=== PATIENT | male | born 1980 | race African-American/Black ===

== ENCOUNTER 2016-11-22 11:39 | Emergency (ER) | payer OTHER ==
[2016-11-22 11:57] VITALS: BP 137/99; PULSE 80; TEMP 97.5; BMI 39.7
--- NOTE | 2016-11-22 12:43 | PDOC ---
History of Present Illness - General Chief Complaint: Injury Stated Complaint: RT HAND INJURY Time Seen by Provider: 11/22/16 11:58 History Source: Patient Exam Limitations: No Limitations - History of Present Illness Initial Comments: 11/22/16 12:37 36 yr male with injury to left middle finger after injury at work. Pt states a piece of sheetrock fell on his right middle digit. Occurred: reports: just prior to arrival Past History - Past Medical History Allergies/Adverse Reactions: Allergies Allergy/AdvReac Type Severity Reaction Status Date / Time No Known Allergies Allergy Verified 11/22/16 11:53 Home Medications: Ambulatory Orders NK [No Known Home Medication] 11/22/16 Asthma: Yes Diabetes: Yes HTN: Yes Other medical history: sleep apnea - Psycho/Social/Smoking Cessation Hx Anxiety: No Suicidal Ideation: No Smoking Status: Yes Smoking History: Never smoked Have you smoked in the past 12 months: Yes Number of Cigarettes Smoked Daily: 1 Information on smoking cessation initiated: No 'Breaking Loose' booklet given: 05/20/14 Hx Alcohol Use: No Drug/Substance Use Hx: Yes (alma) Substance Use Type: None Review of Systems - Review of Systems Able to Perform ROS?: Yes Is the patient limited Romanian proficient: No Constitutional: No: Symptoms Reported HEENTM: No: Symptoms Reported Respiratory: No: Symptoms reported Cardiac (ROS): No: Symptoms Reported ABD/GI: No: Symptoms Reported : No: Symptoms Reported Musculoskeletal: Yes: See HPI *Physical Exam - Vital Signs Last Vital Signs Temp Pulse Resp BP Pulse Ox 97.5 F L 80 18 137/99 100 11/22/16 11:54 11/22/16 11:54 11/22/16 11:54 11/22/16 11:54 11/22/16 11:54 - Physical Exam General Appearance: Yes: Nourished, Appropriately Dressed HEENT: positive: EOMI, BAUDILIO Neck: positive: Supple Respiratory/Chest: positive: Lungs Clear, Normal Breath Sounds Cardiovascular: positive: Regular Rhythm, Regular Rate Extremity: positive: Normal Capillary Refill, Normal Inspection, Other (right middle digit with pain to the tip of finger ) Integumentary: positive: Normal Color, Dry, Warm Neurologic: positive: Fully Oriented, Alert, Normal Mood/Affect, Normal Response , Motor Strength 5/5 ED Treatment Course - RADIOLOGY Radiology Studies Ordered: Category Date Time Status FINGER(S) RIGHT [RAD] Stat Radiology 11/22/16 12:05 Ordered *DC/Admit/Observation/Transfer Diagnosis at time of Disposition: Finger contusion Qualifiers: Encounter type: initial encounter Finger: middle finger Damage to nail status: without damage Laterality: right Qualified Code(s): S60.031A - Contusion of right middle finger without damage to nail, initial encounter - Discharge Dispostion Disposition: HOME Condition at time of disposition: Good - Referrals Referrals: Rell Fu MD [Primary Care Provider] - - Patient Instructions Additional Instructions: use the splint while awake remove to sleep and bathe use for 3-5 days take motrin as needed for any pain (over the counter ibuprofen, advil motrin) follow with the orthopedist for follow up as needed - Post Discharge Activity Work/School Note: Back to Work
== END 2016-11-22 13:18 | disposition home or self-care (01) ==
LOC: JERFT 11:39
PROC: 2W3JX1Z Immobilization of Right Finger using Splint (ICD-10-PCS; principal; 2016-11-22)
DX: S60.031A Contusion of right middle finger without damage to nail, initial encounter (principal); W22.8XXA Striking against or struck by other objects, initial encounter; Y93.H3 Activity, building and construction; Y92.69 Other specified industrial and construction area as the place of occurrence of the external cause; Y99.0 Civilian activity done for income or pay; I10 Essential (primary) hypertension; E11.9 Type 2 diabetes mellitus without complications; J45.909 Unspecified asthma, uncomplicated; G47.39 Other sleep apnea
CPT/HCPCS: 73140-TC-RT; 99281-25

== ENCOUNTER 2017-09-04 19:59 | Emergency (ER) | payer OTHER ==
--- NOTE | 2017-09-04 20:20 | PDOC ---
Rapid Medical Evaluation Chief Complaint: Pain, Acute Time Seen by Provider: 09/04/17 20:18 Medical Evaluation: Allergies Allergy/AdvReac Type Severity Reaction Status Date / Time No Known Allergies Allergy Verified 11/22/16 11:53 09/04/17 20:18 37yo male patient w/ PmHx: IDDM (not taking any medications) presents to ED via EMS c/o left leg pain. 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 Patient reports he is unable to ambulate at this time.
[2017-09-04 20:21] VITALS: BP 151/92; PULSE 87; TEMP 98.3; BMI 40.2
--- NOTE | 2017-09-04 21:21 | PDOC ---
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 Patient states he was running when his left leg slipped out in front of him and he suddenly felt a "pop" to the back of his left thigh and now feels like he can not move his leg without pain. He denies any trauma to the leg. He denies any loss of sensation to his lower extremities. PAST MEDICAL HISTORY: Denies past medical history FAMILY HISTORY: Denies SOCIAL HISTORY: Denies tobacco, alcohol, illicit drug use. SURGICAL HISTORY: Denies ALLERGIES: No known drug allergies REVIEW OF SYSTEMS as per HPI PHYSICAL EXAM General Appearance: Well-appearing, appropriately dressed. No apparent distress. HEENT: EOMI, PERRLA. No conjunctival pallor. No photophobia, scleral icterus. Respiratory/Chest: Lungs CTAB. Cardiovascular: RRR. S1, S2. Gastrointestinal/Abdominal: Normal bowel sounds. Abdomen soft, non-distended. No tenderness or rebound tenderness. No organomegaly, pulsatile mass, guarding , hernia, hepatomegaly, splenomegaly. Musculoskeletal/Extremities: Limited ROM to left leg, pain elicited with flexion or extension, but no deformities. FROM of all other extremities, normal capillary refill. No tenderness to extremities, pedal edema, swelling, erythema or deformity. Integumentary: Appropriate color, dry, warm. No cyanosis, erythema, jaundice or rash Neurologic: finger buffs assembler II-XII intact. Fully oriented, alert. Appropriate mood/affect. Motor strength 5/5. No appreciable EOM palsy, facial droop or sensory deficit. Past History - Past Medical History Allergies/Adverse Reactions: Allergies Allergy/AdvReac Type Severity Reaction Status Date / Time No Known Allergies Allergy Verified 09/04/17 20:19 Home Medications: Ambulatory Orders Diclofenac Sodium 50 mg PO BID #20 tablet. 09/04/17 Asthma: Yes Diabetes: Yes HTN: Yes - Suicide/Smoking/Psychosocial Hx Smoking Status: Yes Smoking History: Never smoked Have you smoked in the past 12 months: Yes Number of Cigarettes Smoked Daily: 1 'Breaking Loose' booklet given: 05/20/14 Hx Alcohol Use: No Drug/Substance Use Hx: Yes (alma) Substance Use Type: None *Physical Exam - Vital Signs Last Vital Signs Temp Pulse Resp BP Pulse Ox 98.3 F 87 16 151/92 97 09/04/17 20:19 09/04/17 20:19 09/04/17 20:19 09/04/17 20:19 09/04/17 20:19 Medical Decision Making - Medical Decision Making 09/04/17 21:20 37 yo obese male with hx of non insulin dependent DM presents to fast track with pain to posterior left thigh 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 Clinical presentation consistent with hamstring injury. -60 mg Toradol IM -Crutches -Anatoliy bandage Will treat pain with NSAIDS Advised patient to take medication as prescribed and follow up with ortho next week. Advised patient of signs and symptoms for return to ED. Patient verbalized understanding and agrees to plan. *DC/Admit/Observation/Transfer Diagnosis at time of Disposition: Left hamstring injury Qualifiers: Encounter type: initial encounter Qualified Code(s): S76.302A - Unspecified injury of muscle, fascia and tendon of the posterior muscle group at thigh level , left thigh, initial encounter - Discharge Dispostion Disposition: HOME Condition at time of disposition: Stable Admit: No - Prescriptions Prescriptions: Diclofenac Sodium 50 mg PO BID #20 tablet.dr - Referrals Referrals: Endy Mace MD [Staff Physician] - Fito Mclain MD [Staff Physician] - - Patient Instructions Printed Discharge Instructions: DI for Hamstring Strain, How To Perform RICE ( Rest, Ice, Compress, Elevate) Additional Instructions: Please take medications as prescribed. As discussed, if your pain persists past 3-5 days, please follow up with orthopedics for physical therapy and/or MRI. If you develop any loss of sensation to your leg, any loss of bowel or bladder function, or any new or worsening symptoms, please return to the ER. - Post Discharge Activity Forms/Work/School Notes: Back to Work
[2017-09-04] MEDS ORDERED: KETOROLAC TROMETHAMINE 60 MG/2 ML VIAL IM ONE (21:31)
[2017-09-04] MEDS ORDERED: KETOROLAC TROMETHAMINE 60 MG/2 ML VIAL ONE (21:32)
== END 2017-09-04 21:38 | disposition home or self-care (01) ==
LOC: JERFT 19:59
PROC: 3E0233Z Introduction of Anti-inflammatory into Muscle, Percutaneous Approach (ICD-10-PCS; principal; 2017-09-04)
DX: S76.302A Unspecified injury of muscle, fascia and tendon of the posterior muscle group at thigh level, left thigh, initial encounter (principal); W01.0XXA Fall on same level from slipping, tripping and stumbling without subsequent striking against object, initial encounter; Y93.F9 Activity, other caregiving; Y92.89 Other specified places as the place of occurrence of the external cause; Y99.0 Civilian activity done for income or pay; J45.909 Unspecified asthma, uncomplicated; I10 Essential (primary) hypertension; E11.9 Type 2 diabetes mellitus without complications; Z79.84 Long term (current) use of oral hypoglycemic drugs
CPT/HCPCS: 99281-25

== ENCOUNTER 2019-06-01 14:47 | Emergency (ER) | payer OTHER ==
[2019-06-01 14:56] VITALS: BP 140/79; PULSE 89; TEMP 98.3; BMI 42.7
[2019-06-01] MEDS ORDERED: KETOROLAC TROMETHAMINE 60 MG/2 ML VIAL IM ONE (15:08)
--- NOTE | 2019-06-01 15:13 | PDOC ---
History of Present Illness - General Chief Complaint: Back Pain Stated Complaint: PAIN Time Seen by Provider: 06/01/19 14:57 - History of Present Illness Initial Comments: 06/01/19 15:08 CHIEF COMPLAINT: left sided pain HISTORY OF PRESENT ILLNESS: 39 yo M with hx of non insulin dependent DM presents to fast track with left sided pain. Patient states he went to sleep with his arm extended over his head a couple nights ago, and woke up with pain to his left side. He describes the pain as "inside, not coming from the outside ," but does endorse worsening pain with movement. He believed the pain would self resolve but instead has gotten worse. He c/o of pain with inspiration and movement. He admits to smoking marijuana (not vaping), denies use of illicit drugs or cigarettes. Denies any recent travel, use of hormones, recent surgies. No recent travel or sick contacts. PAST MEDICAL HISTORY: NIDDM FAMILY HISTORY: Denies SOCIAL HISTORY: Marijuana use. Denies tobacco, alcohol, illicit drug use. SURGICAL HISTORY: Denies ALLERGIES: No known drug allergies REVIEW OF SYSTEMS General/Constitutional: Denies fever or chills. Denies weakness, weight change. HEENT: Denies change in vision. Denies ear pain or discharge. Denies sore throat. Cardiovascular: Chest pain with deep inspiration. Denies shortness of breath. Respiratory: Denies cough, wheezing, or hemoptysis. Gastrointestinal: Denies nausea, vomiting, diarrhea or constipation. Denies rectal bleeding. Genitourinary: Denies dysuria, frequency, or change in urination. Musculoskeletal: Left lateral chest wall pain. Denies joint or muscle swelling or pain. Denies neck or back pain. Skin and breasts: Denies rash or easy bruising. Neurologic: Denies headache, vertigo, loss of consciousness, or loss of sensation. Psychiatric: Denies depression or anxiety. PHYSICAL EXAM General Appearance: Well-appearing, appropriately dressed. No apparent distress. HEENT: EOMI, PERRLA, normal ENT inspection, normal voice, TMs normal, pharynx normal. No conjunctival pallor. No photophobia, scleral icterus. Neck: Supple. Trachea midline. No tenderness, rigidity, carotid bruit, stridor , lymphadenopathy, or thyromegaly. Respiratory/Chest: Lungs CTAB. No shortness of breath, chest tenderness, respiratory distress, accessory muscle use. No crackles, rales, rhonchi, stridor , wheezing, dullness Cardiovascular: RRR. S1, S2. No JVD, murmur, bradycardia, tachycardia. Vascular Pulses: Dorsalis-Pedis (R): 2+, Dorsalis-Pedis (L): 2+ Gastrointestinal/Abdominal: Normal bowel sounds. Abdomen soft, non-distended. No tenderness or rebound tenderness. No organomegaly, pulsatile mass, guarding , hernia, hepatomegaly, splenomegaly. Lymphatic: No adenopathy, tenderness. Musculoskeletal/Extremities: Reproducible pain to L lateral chest wall. Normal inspection. FROM of all extremities, normal capillary refill. Pelvis Stable. No CVA tenderness. No tenderness to extremities, pedal edema, swelling, erythema or deformity. Integumentary: Appropriate color, dry, warm. No cyanosis, erythema, jaundice or rash Neurologic: caster investment casting II-XII intact. Fully oriented, alert. Appropriate mood/affect. Motor strength 5/5. No appreciable EOM palsy, facial droop or sensory deficit. Past History - Past Medical History Allergies/Adverse Reactions: Allergies Allergy/AdvReac Type Severity Reaction Status Date / Time No Known Allergies Allergy Verified 06/01/19 14:56 Home Medications: Ambulatory Orders Diclofenac Sodium 50 mg PO BID #20 tablet. 09/04/17 Diclofenac Sodium 75 mg PO BID #20 tablet. 06/01/19 Asthma: Yes COPD: No Diabetes: Yes HTN: Yes - Psycho Social/Smoking Cessation Hx Smoking Status: Yes Smoking History: Current some day smoker Have you smoked in the past 12 months: Yes Number of Cigarettes Smoked Daily: 0 Information on smoking cessation initiated: No 'Breaking Loose' booklet given: 05/20/14 Hx Alcohol Use: No Drug/Substance Use Hx: Yes Substance Use Type: None *Physical Exam - Vital Signs Last Vital Signs Temp Pulse Resp BP Pulse Ox 98.3 F 89 16 140/79 97 06/01/19 14:53 06/01/19 14:53 06/01/19 14:53 06/01/19 14:53 06/01/19 14:53 Medical Decision Making - Medical Decision Making 06/01/19 15:13 39 yo M with hx of non insulin dependent DM presents to fast track with left sided pain. -CXR -Toradol IM Discharge - Discharge Information Problems reviewed: Yes Clinical Impression/Diagnosis: Chest wall pain Condition: Stable Disposition: HOME - Admission No - Additional Discharge Information Prescriptions: Diclofenac Sodium 75 mg PO BID #20 tablet.dr - Follow up/Referral Referrals: Conor Elena MD [Staff Physician] - - Patient Discharge Instructions Patient Printed Discharge Instructions: DI for Muscle Strain Additional Instructions: Please take medications as prescribed. Follow up with your primary care doctor in 1 week for continued monitoring of your symptoms. If you develop worsening chest pain, shortness of breath, radiating pain to your neck or shoulder, or any new or worsening symptoms, please return to the ER immediately. - Post Discharge Activity
[2019-06-01] MEDS ORDERED: KETOROLAC TROMETHAMINE 60 MG/2 ML VIAL ONE (15:16)
== END 2019-06-01 16:12 | disposition home or self-care (01) ==
LOC: JERFT 14:47
PROC: 3E0233Z Introduction of Anti-inflammatory into Muscle, Percutaneous Approach (ICD-10-PCS; principal; 2019-06-01)
DX: R07.89 Other chest pain (principal); E11.9 Type 2 diabetes mellitus without complications; Z79.4 Long term (current) use of insulin; I10 Essential (primary) hypertension; J45.909 Unspecified asthma, uncomplicated
CPT/HCPCS: 71046-TC-FY; 96372; 99282-25

== ENCOUNTER 2020-05-18 12:07 | Emergency (ER) | payer OTHER ==
[2020-05-18 12:14] VITALS: TEMP 97.6; BMI 40.1
[2020-05-18 13:12] LABS: BASO % 1.1 % (0-2.0); EOS % 1.8 % (0-4.5); HEMATOCRIT 41.9 % (35.4-49); HEMOGLOBIN 14.4 GM/dL (11.7-16.9); LYMPH % 32.2 % (8-40); MCH 31.5 pg (25.7-33.7); MCHC 34.5 g/dl (32.0-35.9); MEAN CELL VOLUME 91.5 fl (80-96); MEAN PLT VOLUME 9.1 fl (7.5-11.1); MONO % 7.2 % (3.8-10.2); NEUT % 57.7 % (42.8-82.8); PLATELET COUNT 199 K/MM3 (134-434); RBC 4.58 M/mm3 (4.00-5.60); RDW 13.2 % (11.9-15.9)
--- NOTE | 2020-05-18 13:22 | PDOC ---
History of Present Illness - General Chief Complaint: Chest Pain Stated Complaint: CHEST PRESSURE Time Seen by Provider: 05/18/20 12:42 History Source: Patient, Family Exam Limitations: No Limitations - History of Present Illness Initial Comments: 05/18/20 13:22 Hermilo Lancaster is a 40M with PMH HTN, NIDDM, GERD, presenting with chest pressure. Has not seen doctor in years. 2 weeks ago visited family in [place], deny and covid-19 exposure, never tested. Soon after got a fever with significant coughing, self isolated at home with spouse who was also sick, since fully recovered. After started getting AM and PM epigastric/substernal chest pain, sharp and burning with occassional radiation up to neck and irritating throat. Also has difficulty breathing with deep inspiration. Has had GERD before but never treated. Pain worse when supine and improved with sitting up. No N/V, no fevers, no productive cough, no C/D, no lower abd pain, no urinary sx. No personal or FH of blood clots. No PMH ACS or heart/lung disease. No allergies. No PSH. Chronic marijuana user, last use last night, occasional alcohol, no tobacco use. No PSH. Past History - Medical History Allergies/Adverse Reactions: Allergies Allergy/AdvReac Type Severity Reaction Status Date / Time No Known Allergies Allergy Verified 05/18/20 12:14 Home Medications: Ambulatory Orders Famotidine [Pepcid -] 20 mg PO DAILY PRN #14 tablet 05/18/20 Mag Hydrox/Aluminum Hyd/Simeth [Maalox Advanced Suspension] 355 ml PO DAILY PRN #1 oral.susp 05/18/20 Asthma: Yes COPD: No Diabetes: Yes HTN: Yes - Psycho-Social/Smoking History Smoking Status: Yes Smoking History: Current every day smoker Have you smoked in the past 12 months: Yes Number of Cigarettes Smoked Daily: 0 Information on smoking cessation initiated: No 'Breaking Loose' booklet given: 05/20/14 - Substance Abuse Hx (Audit-C & DAST Scrn) How often the patient has a drink containing alcohol: Never Score: In Men: 4 or > Positive; In Women: 3 or > Positive: 0 Screen Result (Pos requires Nsg. Audit-10AR): Negative In the last yr the pt used illegal drug/Rx for NonMed reason: Yes Score: Yes response is considered Positive: 1 Screen Result (Positive result requires Nsg. DAST-10): Positive Review of Systems - Review of Systems Able to Perform ROS?: Yes Constitutional: No: Symptoms Reported HEENTM: No: Symptoms Reported Respiratory: Yes: Shortness of Breath, SOB at Rest. No: Cough, Productive cough Cardiac (ROS): Yes: Chest Pain. No: Irregular Heart Rate, Lightheadedness, Palpitations, Syncope ABD/GI: Yes: Nausea, Poor Appetite, Poor Fluid Intake. No: Constipated, Diarrhea, Vomiting, Abdominal cramping : No: Symptoms Reported Musculoskeletal: No: Symptoms Reported Integumentary: No: Symptoms Reported Neurological: No: Symptoms reported Endocrine: No: Symptoms Reported Hematologic/Lymphatic: No: Symptoms Reported All Other Systems: Reviewed and Negative *Physical Exam - Vital Signs Last Vital Signs Temp Pulse Resp BP Pulse Ox 97.6 F 92 H 22 H 152/103 H 98 05/18/20 12:10 05/18/20 12:10 05/18/20 12:10 05/18/20 12:10 05/18/20 12:10 - Physical Exam General Appearance: Yes: Nourished, Appropriately Dressed, Mild Distress, Obese, Other (tall, anxious-appearing) HEENT: positive: EOMI, BAUDILIO, Normal Voice, Symmetrical, Pharynx Normal. negative: Scleral Icterus (R), Scleral Icterus (L), Pharyngeal Erythema, Tonsillar Exudate, Tonsillar Erythema Neck: positive: Trachea midline, Normal Thyroid, Supple. negative: Tender, Rigid, Lymphadenopathy (R), Lymphadenopathy (L), Tender lateral, Tender midline Respiratory/Chest: positive: Lungs Clear, Normal Breath Sounds. negative: Chest Tender, Respiratory Distress, Accessory Muscle Use, Labored Respiration, Crackles, Rales, Rhonchi, Stridor, Wheezing Cardiovascular: positive: Regular Rhythm, Regular Rate, Tachycardia (93). negative: Murmur Gastrointestinal/Abdominal: positive: Normal Bowel Sounds, Soft, Protuberent. negative: Tender, Organomegaly, Pulsatile Mass, Guarding, Rebound Musculoskeletal: positive: Normal Inspection. negative: CVA Tenderness, Vertebral Tenderness Extremity: positive: Normal Capillary Refill, Normal Inspection, Normal Range of Motion, Pelvis Stable. negative: Tender, Pedal Edema, Swelling, Calf Tenderness Integumentary: positive: Normal Color, Dry, Warm Neurologic: positive: Fully Oriented, Alert, Normal Mood/Affect, Normal Response, Motor Strength 12/26 ED Treatment Course - LABORATORY CBC & Chemistry Diagram: 05/18/20 13:02 05/18/20 13:02 - ADDITIONAL ORDERS Additional order review: 05/18/20 13:02 RBC 4.58 MCV 91.5 MCHC 34.5 RDW 13.2 MPV 9.1 Neutrophils % 57.7 Lymphocytes % 32.2 Monocytes % 7.2 Eosinophils % 1.8 Basophils % 1.1 Medical Decision Making - Medical Decision Making 05/18/20 13:22 Patient presents with 2 weeks of substernal chest pain with burning sensation radiating to throat. Also has worsening SOB with deep inspiration and recent travel. Presentation concerning for GERD vs. ACS, but also having pleuritic pain, satting 100% on RA without SOB at this time, concern for PE but can be ruled out by PERC. Ordering CMP/CBC/CP/lipase/D-dimer/ECG/CXR. Pepcid/Maalox given. CXR unremarkable. ECG shows NSR with HR 98, QTc 428, no TOMAS/D or TWI. Labs notable for: - CBC WNL - CMP WNL, BGM 200 consistent with DM but unconcerning - CP negative - D-dimer 443 WNL 05/18/20 15:19 Patient feels much better after GI medicines. HR 81. Labs unremarkable for ACS, unlikely PE. Discharging home with Pepcid/Maalox. Educated about GERD and return precautions. Educated about DM and HTN and need for PMD f/u. Discharge - Discharge Information Problems reviewed: Yes Clinical Impression/Diagnosis: Chest pressure GERD (gastroesophageal reflux disease) Qualifiers: Esophagitis presence: esophagitis presence not specified Qualified Code(s): K21.9 - Gastro-esophageal reflux disease without esophagitis Condition: Stable Disposition: HOME - Admission No - Additional Discharge Information Prescriptions: Mag Hydrox/Aluminum Hyd/Simeth [Maalox Advanced Suspension] 355 ml PO DAILY PRN #1 oral.susp PRN Reason: Dyspepsia Famotidine [Pepcid -] 20 mg PO DAILY PRN #14 tablet PRN Reason: Dyspepsia - Follow up/Referral Referrals: [facility] [place] [Provider Group] DiGiorno,Kwadwo, DO [Staff Physician] - - Patient Discharge Instructions Patient Printed Discharge Instructions: DI for Gastroesophageal Reflux Disease (GERD), DI for Atypical Chest Pain Additional Instructions: Today you were evaluated for chest pain. Your labs and X-ray are all normal. You are not having a heart attack and do not have any clots in your lungs. Your symptoms are being caused by strong acid reflux. At home, do not eat too close to bed time, avoid alcohol, fatty, or spicy foods, and take Pepcid and Maalox for symptoms. Pepcid can be taken once a day, or up to twice a day if needed. If twice a day does not work, you can get over the counter Nexium and see a GI doctor. A referral to see a primary care doctor and a GI doctor has been given, please see them in the next week. If you experience worsening chest pain, difficulty breathing, dizziness, vomiting, or any other new or concerning symptoms, please return to the emergency room. - Post Discharge Activity
[2020-05-18] MEDS ORDERED: FAMOTIDINE 20 MG/50 ML IVPB 20 MG/50 ML MG IVPB ONE (13:47)
[2020-05-18] MEDS ORDERED: MAG HYDROX/AL HYDROX/SIMETH 30 ML UNIT-DOSE CUP PO ONE (13:47)
--- OUTSIDE RECORDS SUMMARY | 2020-05-18 13:50 | XMS ---
:1980 Author Organization [facility] Support Name Relationship Address Phone SE Unavailable Unavailable Unavailable [place] Unavailable [address] [facility] [place] [address] OLIVIA LANCASTER [address] [place] [address] LAMINE CHARLES SISTER Leana JOHN PH [place] [address] Olivia Lancaster Unavailable [address] [place] [address] Re-disclosure Warning The records that you are about to access may contain information from federally- assisted alcohol or drug abuse programs. If such information is present, then the following federally mandated warning applies: This information has been disclosed to you from records protected by federal confidentiality rules (42 CFR part 2). The federal rules prohibit you from making any further disclosure of this information unless further disclosure is expressly permitted by the written consent of the person to whom it pertains or as otherwise permitted by 42 CFR part 2. A general authorization for the release of medical or other information is NOT sufficient for this purpose. The Federal rules restrict any use of the information to criminally investigate or prosecute any alcohol or drug abuse patient.The records that you are about to access may contain highly sensitive health information, the redisclosure of which is protected by Article 27-F of the [facility] Public Health law. If you continue you may haveaccess to information: Regarding HIV / AIDS; Provided by facilities licensed or operated by the [facility] Office of Mental Health; or Provided by the [facility] Office for People With Developmental Disabilities. If such information is present, then the following [facility] mandated warning applies: This information has been disclosed to you from confidential records which are protected by state law. State law prohibits you from making any further disclosure of this information without the specific written consent of the person to whom it pertains, or as otherwise permitted by law. Any unauthorized further disclosure in violation of state law may result in a fine or prison sentence or both. A general authorization for the release of medical or other information is NOT sufficient authorization for further disclosure. Allergies and Adverse Reactions Type Description Substance Reaction Status Data Source(s ) No Information No Information No Information eC W2 ([facility]) No Information No Information No Information eC W2 ([facility]) No Known Allergies No Known Allergies No Known Allergies eCW2 ([facility]) Encounters Encounter Providers Location Date Indications Data Source(s ) [facility] 07/13/2018 eCW2 [facility] 12:00:00 AM [facility] EST Care) [facility] 07/02/2018 eCW2 [facility] 12[facility]00:00 AM [facility] EST Care) [facility] 06/04/2018 eCW2 [facility] 12:00:00 AM [facility] EDT Care) [facility] 06/04/2018 eCW2 ([facility] 12:00:00 AM [facility] EDT Care) [facility] 06/04/2018 eCW2 [facility] 12:00:00 AM [facility] EDT Care) Immunizations Vaccine Date Status Description Data Source(s) No Known Immunizations completed eCW2 ([facility]) No Known Immunizations completed eCW2 ([facility]) No Known Immunizations completed eCW2 ([facility]) Medications Medication Brand Start Product Dose Route Administrative Pharmacy [facility] Indications Reaction Description Data Name Date Form Instructions Instructions Source(s) Ofloxacin 3 Ofloxa 06/04/ active 1 drop into eCW2 MG/ML 2017 affected eye ([place] [facility] 0.3 % 12:00: [place] [facility] 00 [facility] 0.3 % Metformin Metfor 10/12/ active 1 tablet eCW2 hydrochlori min 2017 with a meal ( Abhishek de 1000 MG HCl 12:00: [place] Oral Tablet 1000 00 AM [facility] Metformin mg EDT Care) HCl 1000 mg Ciprofloxac Ciprof active 2 drops into eCW2 in 3 MG/ML loxaci 2017 affected eye ([facility] n HCl 12:00: [place] Solution 0.3 % 00 AM [facility] Ciprofloxac EDT Care) in HCl 0.3 % No Known complet eCW2 Medications ed (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 erectile dysfunction type K21.9 Gastroesophageal Gastroesophageal Problem 07/02/2018 eC W2 ([place] reflux disease reflux disease 12:00:00 AM [facility] without esophagitis without esophagitis EST Care) E11.9 Type 2 diabetes Type 2 diabetes Problem 06/04/2018 eCW2 ([place] mellitus mellitus 12:00:00 AM [facility] EDT Care) N52.9 Erectile dysfunction Erectile Problem 06/04/2018 eCW2 ([place] dysfunction 12:00:00 AM [facility] EDT Care) E66.01 Morbid obesity Morbid obesity Problem 06/04/2018 eCW2 ( [place] 12:00:00 AM [facility] EDT Care) V75.9 SCREENING Screen For Infec Diagnosis 10/22/2018 [place] ([place] EXAMINATION FOR Dis NOS 03:49:06 PM [place] UNSPECIFIED [facility] INFECTIOUS DISEASE [facility]) Surgeries/Procedures Procedure Description Date Indications Data Source(s) COLLECTION CAPILLARY 06/04/2018 eCW2 ([facility] BLOOD SPECIMEN 12:00:00 AM Health Care) EDT GLUC BLD GLUC MNTR DEV 06/04/2018 eCW2 ([place] CLEARED FDA SPEC HOME 12:00:00 AM Health Care) USE EDT HEMOGLOBIN 06/04/2018 eCW2 ([facility] john GLYCOSYLATED A1C 12:00:00 AM Health Care ) EDT No Known procedures No Known procedures e CW2 ([facility]) No Known procedures No Known procedures e CW2 ([facility]) Social History Code Duration Value Status Description Data Source(s ) Smoking Unknown if ever completed Unknown if ever eCW2 ([facility] smoked smoked [facility]) Smoking Unknown if ever completed Unknown if ever eCW2 ([facility] smoked smoked [facility]) Smoking Never Smoker completed Never Smoker eCW2 ([facility] on [facility]) Vital Signs ID Date Data Source UNK Name Value Range Interpretation Code Description Data Source(s) Diastolic blood 81 mm[Hg] 81 mm[Hg] eCW2 ([facility]) Systolic blood 131 mm[Hg] 131 mm[Hg] eCW2 ([facility] on [facility]) Body temperature 99.0 [degF] 99.0 [degF] eCW2 ( [facility]) Body mass index 43.95 kg/m2 43.95 kg/m2 eCW2 ([facility] [place] (BMI) [Ratio] [facility]) Body weight 314 [lb_av] 314 [lb_av] eCW2 ([facility] n [facility]) Body height 70.87 70.87 [in_us] eCW2 ([facility] on [in_us] [facility]) Patient Treatment Plan of Care Planned Activity Planned Date Details Description Data Source (s) Ofloxacin 3 MG/ML 06/04/2018 12:00:00 eCW 2 ([facility] Ophthalmic Solution AM [facility]) Metformin hydrochloride 06/04/2018 12:00:00 eCW2 ([facility] 1000 MG Oral Tablet AM [facility]) Ciprofloxacin 3 MG/ML 06/04/2018 12:00:00 eCW2 ([facility] Ophthalmic Solution AM [facility])
[2020-05-18] MEDS ORDERED: MAG HYDROX/AL HYDROX/SIMETH 30 ML UNIT-DOSE CUP ONE (13:52)
[2020-05-18 13:58] LABS: ALK PHOS 62 U/L (45-117); ANION GAP 3 MMOL/L (8-16); BILIRUBIN,TOTAL 0.3 mg/dL (0.2-1); BLOOD UREA NITROGEN 12.7 mg/dL (7-18); CALCIUM 9.5 mg/dL (8.5-10.1); CHLORIDE 106 mmol/L (98-107); CO2 30 mmol/L (21-32); GLUCOSE,RANDOM 210 mg/dL (74-106); POTASSIUM 4.1 mmol/L (3.5-5.1); SGOT/AST 23 U/L (15-37); SGPT/ALT 36 U/L (13-61); SODIUM 138 mmol/L (136-145)
--- NOTE | 2020-05-18 14:55 | PDOC ---
Documentation entered by Elba Rosa SCRIBE, acting as scribe for Gregory Chavez MD. Gregory Chavez MD: This documentation has been prepared by the connieibeMoe Lincy, SCRIBE, under my direction and personally reviewed by me in its entirety. I confirm that the documentation accurately reflects all work, treatment, procedures, and medical decision making performed by me. Attending Attestation - Resident Resident Name: Juan Norris - ED Attending Attestation I have performed the following: I have examined & evaluated the patient, The case was reviewed & discussed with the resident, I agree w/resident's findings & plan, Exceptions are as noted - HPI HPI: 05/18/20 14:44 The patient is a 40-year-old female with a past medical history significant for asthma (childhood), HTN, DM, and GERD who presents to the emergency department with chest discomfort. The patient reports midsternal, chest discomfort like he is suffocating and choking, thats aggravated with lying down. Denies pain aggravation with ambulation. The patient reports associated symptoms of nausea and mild abdominal discomfort. - Physicial Exam PE: 05/18/20 14:44 Vitals: Triage vital signs reviewed General Appearance: No acute distress, well nourished, well developed Neck: Supple; No nuchal rigidity Chest Wall: Nontender Cardiac: Regular rate and rhythm, no murmurs, no rubs, no gallops Lungs: Clear to auscultation bilateral, good air movement bilaterally Abdomen: Soft, nondistended, normal bowel sounds, nontender to palpation Extremities: Full range of motion to all extremities, no cyanosis, clubbing, or edema Skin: Warm and dry, no rashes or lesions, no rash, no petechiae Psych: Normal mood, normal affect - Medical Decision Making 05/18/20 15:10 Well-appearing no apparent distress with mild shortness of breath when laying flat. No exertional component. Mild epigastric discomfort. No associated diaphoresis nausea This is been going on for several days EKG demonstrates no ST elevations or T wave inversions His troponin is negative Heart score 1 Patient feels better after GI cocktail possible reflux as etiology We will discharge home with PCP and GI follow-up Findings, need for follow-up and strict return instructions discussed with patient. Heart Score/ECG Review - History History: Slightly suspicious - Electrocardiogram EKG: Normal - Age Age: </= 45 - Risk Factors Risk Factors Heart Score: Yes Hx Hypertension, Yes Hx Diabetes Based on the list above the patient has:: 1-2 risk factors - Troponin Troponin: </= normal limit - Score Heart Score - Total: 1 Discharge - Discharge Information Problems reviewed: Yes Clinical Impression/Diagnosis: Chest pressure GERD (gastroesophageal reflux disease) Qualifiers: Esophagitis presence: esophagitis presence not specified Qualified Code(s): K21.9 - Gastro-esophageal reflux disease without esophagitis Disposition: HOME - Additional Discharge Information Prescriptions: Mag Hydrox/Aluminum Hyd/Simeth [Maalox Advanced Suspension] 355 ml PO DAILY PRN #1 oral.susp PRN Reason: Dyspepsia Famotidine [Pepcid -] 20 mg PO DAILY PRN #14 tablet PRN Reason: Dyspepsia - Follow up/Referral - Patient Discharge Instructions Patient Printed Discharge Instructions: DI for Gastroesophageal Reflux Disease (GERD), DI for Atypical Chest Pain Additional Instructions: Today you were evaluated for chest pain. Your labs and X-ray are all normal. You are not having a heart attack and do not have any clots in your lungs. Your symptoms are being caused by strong acid reflux. At home, do not eat too close to bed time, avoid alcohol, fatty, or spicy foods, and take Pepcid and Maalox for symptoms. A referral to see a primary care doctor and a GI doctor has been given, please see them in the next week. If you experience worsening chest pain, difficulty breathing, dizziness, vomiting, or any other new or concerning symptoms, please return to the emergency room. - Post Discharge Activity
--- NOTE | 2020-05-18 15:14 | EKG ---
Test Reason : Blood Pressure : / mmHG Vent. Rate : 098 BPM Atrial Rate : 098 BPM P-R Int : 144 ms QRS Dur : 088 ms QT Int : 336 ms P-R-T Axes : 075 038 068 degrees QTc Int : 428 ms NORMAL SINUS RHYTHM NORMAL ECG NO PREVIOUS ECGS AVAILABLE Confirmed by ALEX GUILLEN MD ([id number]) on 05/18/2020 3:13:42 PM Referred By: Confirmed By:ALEX GUILELN MD
[2020-05-18 15:23] VITALS: BP 157/102; PULSE 81
[2020-05-19 02:13] LABS: LIPASE 117 U/L (73-393)
== END 2020-05-18 15:37 | disposition home or self-care (01) ==
LOC: JER 12:07
PROC: 3E033NZ Introduction of Analgesics, Hypnotics, Sedatives into Peripheral Vein, Percutaneous Approach (ICD-10-PCS; principal; 2020-05-18)
DX: R07.89 Other chest pain (principal)
CPT/HCPCS: 36415; 71045-TC-FY; 80053; 83690; 84484; 85025; 85379; 93005; 93010; 99285-25